=== PATIENT | male | born 1965 | race Caucasian/White ===

== ENCOUNTER 2020-12-07 05:32 | Outpatient (RCR) | payer MEDICARE ==
[~2020-12-07] VITALS: Ht 170.2 cm; Wt 99.9 kg
[~2020-12-07 05:32] MED LIST: AC500T PO; ESOM10SU PO; GABA-486 PO; GABA300S2 PO; HYDR-3817 PO; HYDR-622 PO; HYDR1TAB PO; INDO50CA PO; LISI30TA5 PO; MELO10CA3 PO; MELO15TA14 PO; NF-ESOM40C PO; OXYC-12 PO; ZLP10T
== END 2020-12-08 09:13 | disposition home or self-care (01) ==
LOC: PREOP 05:32
PROVIDERS: ATTEND Surgery
DX: Z01.818 Encounter for other preprocedural examination (principal); Z12.11 Encounter for screening for malignant neoplasm of colon; Z80.0 Family history of malignant neoplasm of digestive organs
CPT/HCPCS: 87635

== ENCOUNTER 2020-12-09 09:53 | Day surgery (SDC) | payer MEDICARE ==
[2020-12-09] VITALS (9 sets, daily range): BP systolic 140–162; BP diastolic 88–101
[~2020-12-09] VITALS: Ht 170.2 cm; Wt 99.9 kg
[2020-12-09] MEDS ORDERED: LACTATED RINGERS 1,000 ML IV ONE (09:55)
[2020-12-09] MEDS ORDERED: LACTATED RINGERS 1,000 ML IV PRN (10:15)
[2020-12-09] MEDS ORDERED: LIDOCAINE JELLY 2% 6 ML SYRINGE MM PRN (10:15)
--- NOTE | 2020-12-09 10:20 | Progress Note-Pre Operative ---
Pre-Operative Progress Note H&P Reviewed The H&P was reviewed, patient examined and no changes noted. Date Seen by Provider: Dec 09, 2020 Time Seen by Provider: 10:00 Date H&P Reviewed: Dec 09, 2020 Time H&P Reviewed: 10:00 Pre-Operative Diagnosis: screening EUGENIO Kulkarni MD Dec 09, 2020 10:20
--- NOTE | 2020-12-09 10:21 | Discharge Inst-Surgical ---
D/C Lap Instructions-MADI Follow Up Activity as tolerated High Fiber Diet 25g or more per day Avoid Alcohol, Caffeine, Spicy [place] and Acid foods. Drink 64 fluid oz or more of fluids per day. Symptoms to Report: Fever over 101 degree F, Nausea/Vomiting If any problems/questions: Contact your physician or go to Emergency Room EUGENIO BARRAZA MD Dec 09, 2020 10:21
[2020-12-09] MEDS ORDERED: morphine INJ 10 MG/ML 1ML (SYR OR VIAL) IVP PRN ×2 (10:30)
[2020-12-09] MEDS ORDERED: ONDANSETRON 4 MG/2 ML (SDV) Z0FRAN IVP PRN (10:30)
[2020-12-09] MEDS ORDERED: ACETAMINOPHEN 325 MG TABLET PO PRN (10:30)
[2020-12-09] MEDS ORDERED: HYDROcodone/APAP 5 MG/325 MG (LORTAB) TAB PO PRN (10:30)
[2020-12-09] MEDS ORDERED: PROPOFOL INJECTION 50 ML IV ONE ×2 (11:03→11:22)
[2020-12-09] MEDS ORDERED: MIDAZOLAM 2 MG/2 ML (VERSED) VIAL ONE (11:03)
[2020-12-09] MEDS ORDERED: LIDOCAINE JELLY 2% 6 ML SYRINGE ONE (11:13)
--- NOTE | 2020-12-09 11:54 | Progress Note-Post Operative ---
Post-Operative Progess Note Surgeon (s)/Professor Of Biochemistry (s) Surgeon EUGENIO BARRAZA MD Professor Of Biochemistry: none Pre-Operative Diagnosis screening colo with family hx colon ca Post-Operative Diagnosis mild chronic stage 2 ext and int hemorrhoids. Procedure & Operative Findings Date of Procedure 12/09/20 Procedure Performed/Findings colonoscopy Anesthesia Type mac Estimated Blood Loss Estimated blood loss (mL): minimal Specimens/Packing Specimens Removed none EUGENIO BARRAZA MD Dec 09, 2020 11:54
--- NOTE | 2020-12-09 16:09 | OPERATIVE REPORT ---
DATE OF SERVICE: 12/09/2020 ATTENDING PRIMARY CARE PHYSICIAN: Rosy Greenberg MD PREOPERATIVE DIAGNOSIS: Screening colonoscopy with family history of colon cancer. POSTOPERATIVE DIAGNOSES: Chronic stage II external and internal hemorrhoids. Remainder of the rectum and colon were normal. PROCEDURE: Colonoscopy. SURGEON: Eugenio Barraza MD. ANESTHESIA: Monitored anesthesia care. ESTIMATED BLOOD LOSS: Minimal. FINDINGS: Chronic stage II external and internal hemorrhoids. Remainder of the rectum and colon were normal. DISPOSITION: The patient tolerated the procedure well. INDICATIONS: The patient is a 55-year-old male in need of a screening colonoscopy. He did have a colonoscopy approximately 5 years ago, which was normal. He does have a family history of colon cancer with his father passing away with the disease at age 60. He is unknown when he was first diagnosed with the disease. He states that he is otherwise doing well, does not report any major issues with diarrhea nor constipation as well as no red blood per rectum nor any dark tarry stools. DESCRIPTION OF PROCEDURE: The patient was brought to the operating room, laid in the left lateral decubitus position. After adequate IV pain and sedative medications and monitored anesthesia care, a digital rectal examination was performed. Mild chronic stage II external and internal hemorrhoids were identified, which were not actively edematous nor inflamed and no bleeding. Normal sphincter tone was felt and there were no palpable masses. The endoscope was then intubated and anus and rectum gently insufflated. The endoscope was then advanced to the valves of L[place] of the rectum with no polyps or any neoplasms identified. We then proceeded through the sigmoid colon where no diverticulosis identified. The endoscope was then advanced to the remainder of the descending, transverse and ascending colon to the cecum. These segments were normal. There were no polyps or any neoplasms identified throughout the colon or rectum. Endoscope was then slowly withdrawn while taking a second look and suctioning of residual air with no additional findings. The patient tolerated the procedure well. We will recommend continued medical management with a high fiber diet with at least 30 grams of fiber daily as well as significant amounts of water to promote soft stools. He does not need another colonoscopy for another 5 years; however, sooner if he becomes symptomatic. Job ID: [id number] DocumentID: [id number] Dictated Date: 12/09/2020 11:47:56 Ocular Care Technologist Date: 12/09/2020 16:09:10 Dictated By: EUGENIO BARRAZA MD
--- NOTE | 2020-12-11 17:13 | Anesthesia-General Post-Op ---
MAC Significant Intra-Op Events Notes addendum 12-09-20 at 1200 Patient Condition Mental Status/LOC: Same as Preop Cardiovascular: Satisfactory Nausea/Vomiting: Absent Respiratory: Satisfactory Pain: Controlled Complications: Absent Post Op Complications Complications None Follow Up Care/Instructions Patient Instructions None needed. Anesthesiology Discharge Order Discharge Order Patient is doing well, no complaints, stable vital signs, no apparent adverse anesthesia problems. No complications reported per nursing. JIMENA TOUSSAINT CRNA Dec 11, 2020 17:13
== END 2020-12-09 12:45 | disposition home or self-care (01) ==
LOC: ENDO 09:53
PROVIDERS: ATTEND Surgery
DX: Z12.11 Encounter for screening for malignant neoplasm of colon (principal); K64.1 Second degree hemorrhoids; I10 Essential (primary) hypertension; J44.9 Chronic obstructive pulmonary disease, unspecified; G47.33 Obstructive sleep apnea (adult) (pediatric); K21.9 Gastro-esophageal reflux disease without esophagitis; M19.90 Unspecified osteoarthritis, unspecified site; F17.210 Nicotine dependence, cigarettes, uncomplicated; Z79.899 Other long term (current) drug therapy; Z80.0 Family history of malignant neoplasm of digestive organs

== ENCOUNTER 2023-09-21 05:40 | Outpatient (CLI) | payer MEDICARE ==
[~2023-09-21] VITALS: Ht 170.2 cm; Wt 86.5 kg
[~2023-09-21 05:40] MED LIST changes: -GABA300S2 PO; +GABA300S3 PO
[2023-09-28] MEDS ORDERED: TRM50T PO (10:09)
[2023-09-28] MEDS ORDERED: DOCU-143 PO (10:09)
== END 2023-09-22 11:03 | disposition home or self-care (01) ==
LOC: PREOP 05:40
PROVIDERS: ATTEND Surgery
DX: Z01.818 Encounter for other preprocedural examination (principal)

== ENCOUNTER → 2023-09-28 | Day surgery (SDC) | payer MEDICARE ==
[2023-09-28] VITALS (11 sets, daily range): BP systolic 125–158; BP diastolic 85–99
[~2023-09-28] VITALS: Ht 170 cm; Wt 86.5 kg
[~2023-09-28] MED LIST changes: +DOCU-143 PO; +GLYCOPYRROLATE INJ 0.2 MG/ML 2 ML VIAL ONE; +HYDROcodone/ACETAMINOPHEN 7.5 MG/325 MG TABLET PO ONE; +HYDROmorphone INJECTION 2 MG/ML VIAL IV ONE; +LIDOCAINE 2% w/EPI 1:100,000 20 ML VIAL ONE; +LIDOCAINE PF 2% 5 ML VIAL ONE; +MIDAZOLAM INJ 2 MG/2 ML VIAL ONE; +NEOSTIGMINE 1 MG/1ML 10 ML VIAL ONE; +ONDANSETRON INJECTION 4 MG/2 ML (SDV) IVP PRN; +ONDANSETRON INJECTION 4 MG/2 ML (SDV) ONE; +PHENYLEPHRINE 100 MCG/ML 10 ML (ANESTHESIA) SYR ONE; +ROCURONIUM 50 MG/5 ML VIAL IV ONE; +SEVOFLURANE (ULTANE) 15 ML INHAL SOLN ONE; +TRM50T PO; +ceFAZolin INJECTION 2,000 MG in NS (IVPB) 50 ML 50 ML IV ONE; +dexAMETHasone INJ 10 MG/ML 1 ML VIAL ONE; +fentaNYL INJECTION 100 MCG/2 ML VIAL ONE; +morphine INJ 10 MG/ML 1ML (SYR OR VIAL) IVP ONE; +proPOfol INJECTION 200 MG/20 ML VIAL IV ONE
--- NOTE | 2023-09-28 07:54 | Progress Note-Pre Operative ---
Pre-Operative Progress Note Date H&P Reviewed: Sep 28, 2023 Time H&P Reviewed: 07:53 History & Physical: H&P Reviewed, Patient Examed, No changes noted Pre-Operative Diagnosis: right inguinal hernia KINZA DANG DO Sep 28, 2023 07:53
[2023-09-28] MEDS: LACTATED RINGERS 1,000 ML 1,000 ML IV PRN ×2 (08:21→10:01)
--- NOTE | 2023-09-28 08:33 | Discharge Inst-Simple/Standard ---
Discharge Inst-Standard Patient Instructions/Follow Up Plan of Care/Instructions/FU: 2 weeks Elizabeth (suture removal) Activity as Tolerated: Yes Discharge Diet: Regular Diet Other Inst to Patient Follow up Appt: Make appointment for 2 weeks for suture removal and pathology. Instructions: No strenuous activity. May shower in 24 hours, no tub bath or soaking. Use incentive spirometer at home as directed. No Smoking Skin/Wound Care: Keep area clean and dry. Symptoms to Report: Appetite Changes, Extremity Discoloration, Numbness/Tingling, Swelling Increased, Bleeding Excessive, Eyesight Changes, Pain Increased, Urine Color Change, Constipation(Persistent), Fever over 101 degree F, Pain/Pressure in chest, Urinating Difficulty, Cough Up/Vomit Blood, Heart Beat Irreg/Pounding, Pain/Pressure in jaw, Vaginal Bleeding Increase, Cramps in feet or legs, Lightheadedness, Pain/Pressure in shoulder, Diarrhea(Persistent), Memory Changes Suddenly, Questions/Concerns, Weight gain consecutive days, Dizziness/Fainting, Nausea/Vomiting, Shortness of Breath, Weight gain over 2 pounds If questions or concerns contact your physician Or seek help at emergency department. KINZA DANG DO Sep 28, 2023 08:32
--- NOTE | 2023-09-28 10:07 | Progress Note-Post Operative ---
Post-Operative Progess Note Surgeon (s)/Data Typist (s) Surgeon KINZA DANG DO Data Typist: Dr. Weaver Pre-Operative Diagnosis right inguinal hernia Post-Operative Diagnosis right direct inguinal hernia Procedure & Operative Findings Date of Procedure 09/28/23 Procedure Performed/Findings robotic right inguinal hernia repair with mesh Anesthesia Type general Estimated Blood Loss Estimated blood loss (mL): minimal Specimens/Packing Specimens Removed na KINZA DANG DO Sep 28, 2023 10:06
--- NOTE | 2023-09-28 13:53 | Anesthesia-General Post-Op ---
General Patient Condition Mental Status/LOC: Same as Preop Cardiovascular: Satisfactory Nausea/Vomiting: Absent Respiratory: Satisfactory Pain: Controlled Complications: Absent Post Op Complications Complications None Follow Up Care/Instructions Patient Instructions None needed. Anesthesia/Patient Condition Patient Condition Patient is doing well, no complaints, stable vital signs, no apparent adverse anesthesia problems. No complications reported per nursing. LUIS E MACHUCA CRNA Sep 28, 2023 13:53
--- NOTE | 2023-09-29 17:05 | OPERATIVE REPORT ---
DATE OF SERVICE: 09/28/2023 PREOPERATIVE DIAGNOSIS: Right inguinal hernia. POSTOPERATIVE DIAGNOSIS: Right direct inguinal hernia. SURGEON: Kinza Johnson DO INSURANCE AGENCY MANAGER: Azael Weaver DO, assisted in retraction, dissection, and closure. PROCEDURE: Robotic right inguinal hernia repairs. INDICATIONS: The patient is a 57-year-old male with a right inguinal hernia. He wishes to proceed with robotic right inguinal hernia. After discussing risks and benefits, consent was signed in chart. DESCRIPTION OF PROCEDURE: The patient was taken to the operating suite where he was prepped and draped in sterile fashion. Timeout was performed. Local anesthetic was infiltrated just above the umbilicus. #11 blade scalpel was used to make a small skin incision. Cautery was used to dissect down to the fascia, which was then scored and 0 Vicryl was placed in [id number] fashion for closure at the end of the case. A patino trocar was inserted. Pneumoperitoneum was achieved. An 8 mm trocar was placed on the left and right abdomen lateral to the patino. The patient was then positioned and the robot was then docked. The peritoneum was then taken down all the way down to the Marck's ligament and laterally. There was a piece of old mesh that was at Marck's ligament, which was mobilized to allow the new mesh to have proper placement. The dissection was taken 2 cm below the Marck's ligament and laterally. Once all the peritoneum was mobilized free, a 3DMax mesh was inserted and secured with 3-0 Vicryl to Marck's ligament and then superiorly to the abdominal wall. [ ] was adequate coverage. Using a V-Loc suture, the peritoneum was then closed and the robot was then undocked. The trocars were removed. The 0 Vicryl placed at beginning of the case was then tied and the skin was then closed using 4-0 Monocryl in a subcuticular fashion. The abdomen was washed and dried and skin Affix was placed over the incisions. The patient tolerated the procedure well without complications, taken to recovery room in stable condition. Job ID: [id number] DocumentID: [id number] Dictated Date: 09/29/2023 09:57:09 Director Call Date: 09/29/2023 17:03:00 Dictated By: KINZA JOHNSON DO
== END | disposition home or self-care (01) ==
LOC: SDC 07:47
PROVIDERS: ATTEND Surgery
DX: K40.90 Unilateral inguinal hernia, without obstruction or gangrene, not specified as recurrent (principal); F17.210 Nicotine dependence, cigarettes, uncomplicated; G47.33 Obstructive sleep apnea (adult) (pediatric); K21.9 Gastro-esophageal reflux disease without esophagitis; Z79.899 Other long term (current) drug therapy
CPT/HCPCS: 49650; 87081; C1781